=== PATIENT | female | born 1995 | race Caucasian/White ===

== ENCOUNTER 2023-07-12 11:07 | Day surgery (SDC) | payer OTHER ==
[~2023-07-12] VITALS: Ht 167.6 cm; Wt 146.3 kg
[~2023-07-12 11:07] MED LIST: AMPICILLIN SOD/SULBACTAM SOD 3 GM in D5W MINI-BAG PLUS 100 ML IV ONE; IBUP80TA PO
[2023-07-12] MEDS ORDERED: LR 1,000 ML IV SCH ×2 (11:20→14:20)
[2023-07-12] MEDS ORDERED: MIDAZOLAM INJ 2MG/2ML VIAL As Ordered ONE (13:16)
[2023-07-12] MEDS ORDERED: SUGAMMADEX SODIUM 500 MG/5 ML VIAL (BRIDION) As Ordered ONE (13:17)
[2023-07-12] MEDS ORDERED: ONDANSETRON 4MG 2ML VIAL As Ordered ONE (13:17)
[2023-07-12] MEDS ORDERED: LIDOCAINE 2% 100MG/5ML SDV (FOR ANES.) As Ordered ONE (13:17)
[2023-07-12] MEDS ORDERED: ROCURONIUM BROMIDE 50MG/5ML VIAL As Ordered ONE (13:17)
[2023-07-12] MEDS ORDERED: propofoL 200 MG/20 ML VIAL As Ordered ONE (13:17)
[2023-07-12] MEDS ORDERED: fentaNYL 100 MCG/2 ML INJECTION As Ordered ONE (13:17)
[2023-07-12] MEDS ORDERED: ACETAMINOPHEN 1000MG 100ML IV BAG As Ordered ONE (13:18)
[2023-07-12] MEDS: LIDOCAINE 2% W/ EPINEPHRINE 1.7 ML DENTAL INJ As Ordered ONE (14:13)
[2023-07-12] MEDS: OXYMETAZOLINE 0.05% NASAL SPRAY (AFRIN) As Ordered ONE (14:13)
[2023-07-12] MEDS ORDERED: ONDANSETRON 4MG 2ML VIAL IV PRN (14:20)
[2023-07-12] MEDS ORDERED: fentaNYL 100 MCG/2 ML INJECTION IV PRN (14:20)
[2023-07-12 15:20] VITALS: BP 132/81; TEMP 98.2; O2SAT 100
== END 2023-07-12 15:29 | disposition home or self-care (01) ==
LOC: M SDC 11:07
PROVIDERS: ATTEND Dentist
DX: K02.9 Dental caries, unspecified (principal)
CPT/HCPCS: 88300; C9290; D7210; D9223; J0131; J1100; J2250; J2405; J3010